=== PATIENT | male | born 1980 ===

== ENCOUNTER 2016-05-06 20:59 | Emergency (ER) | payer SELFPAY ==
[2016-05-06 21:16] VITALS: BP 118/73; PULSE 84; RESP 18; TEMP 98.5; O2SAT 99
--- NOTE | 2016-05-06 21:46 | ED PDOC ---
Upper Extremity Pain/Injury Time Seen by Provider: 05/06/16 21:28 Chief Complaint (Nursing): Finger,Hand,&Wrist Chief Complaint (Provider): left hand injury History Per: Patient History/Exam Limitations: no limitations Onset/Duration Of Symptoms: Mins (prior to arrival ) Current Symptoms Are (Timing): Still Present Additional Complaint(s): Lowell Rebolledo is a 35 year old male, with no previous medical history, who presents to the ED with complaints of a laceration he sustained to his left hand at work prior to arrival. Pt states to picking up a piece of metal which caused the laceration. Pt reports tetanus is up to date. Pt denies any numbness or tingling. PMD: none provided Past Medical History Reviewed: Historical Data, Nursing Documentation, Vital Signs Vital Signs: Last Vital Signs Temp 98.5 F 05/06/16 21:08 Pulse 84 05/06/16 21:08 Resp 18 05/06/16 21:08 BP 118/73 05/06/16 21:08 Pulse Ox 99 05/06/16 21:08 - Medical History PMH: No Chronic Diseases, Fractures - Surgical History Surgical History: No Surg Hx - Family History Family History: States: Unknown Family Hx - Home Medications Home Medications: Ambulatory Orders Medication Instructions Recorded Cephalexin [cephalexin] 500 mg PO BID #20 cap 05/06/16 - Allergies Allergies/Adverse Reactions: Allergies Allergy/AdvReac Type Severity Reaction Status Date / Time acetaminophen [From Percocet] Allergy FEVER Verified 05/06/16 21:07 Opioids - Morphine Analogues Allergy FEVER Verified 05/06/16 21:07 oxycodone HCl [From Percocet] Allergy FEVER Verified 05/06/16 21:07 Review of Systems ROS Statement: Except As Marked, All Systems Reviewed And Found Negative Skin: Positive for: Other (laceration left palm ) Physical Exam - Reviewed Nursing Documentation Reviewed: Yes Vital Signs Reviewed: Yes - Physical Exam Appears: Positive for: Well, Non-toxic, No Acute Distress Cardiovascular/Chest: Positive for: Regular Rate, Rhythm Respiratory: Positive for: CNT, Normal Breath Sounds Extremity: Positive for: Normal ROM, Other (2 cm laceration to the left palm under the 3rd MCP. ) - ECG O2 Sat by Pulse Oximetry: 99 (RA) Pulse Ox Interpretation: Normal Medical Decision Making Medical Decision Making: Initial Impression: Laceration Initial Plan: * lidocaine 1% * laceration repair * reevaluation 5 stitches placed with good approximation achieved. Pt tolerated procedure well with no immediate complications. Scribe Attestation: Documented by Reva Lazo, acting as a scribe for Angela Morgan PA-C. Provider Scribe Attestation: All medical record entries made by the Scribe were at my direction and personally dictated by me. I have reviewed the chart and agree that the record accurately reflects my personal performance of the history, physical exam, medical decision making, and the department course for this patient. I have also personally directed, reviewed, and agree with the discharge instructions and disposition Disposition - Clinical Impression Clinical Impression: Laceration - Patient ED Disposition Is Patient to be Admitted: No Counseled Patient/Family Regarding: Diagnosis, Need For Followup, Rx Given - Disposition Referrals: Rodney Ramirez MD [Medical Doctor] - Disposition: Routine/Home Disposition Time: 22:26 Condition: STABLE Additional Instructions: keep wound clean do not get wound wet keep splint on return to ED or follow up with your doctor in 7-8 days for removal. Prescriptions: Cephalexin [cephalexin] 500 mg PO BID #20 cap Instructions: Care For Your Stitches (ED), Laceration (ED) Forms: [facility] ED School/Work Excuse Laceration - Laceration Repair laceration repair Wound Length (In cm): 2 Description Of Wound: Irregular (partial thickness) Wound Cleansed With: Betadine, Sterile Saline Anesthesia: Lidocaine 1% Wound Examination: Irrigated With Saline (and betadine ), No FB With Wound Exploration, No Tendon Injury With Wound Exploration Wound Closure: Suture (x 5) Suture Technique And Material Used: Interrupted, Prolene (5-0) Wound Complexity: Simple
[2016-05-06] MEDS ORDERED: Bacitracin 500 Units/gm Oint Foilpak UD ONE (22:23)
== END 2016-05-06 23:41 | disposition home or self-care (01) ==
LOC: H.ER 20:59
DX: S61.412A Laceration without foreign body of left hand, initial encounter (principal); W22.8XXA Striking against or struck by other objects, initial encounter; Y99.0 Civilian activity done for income or pay